=== PATIENT | male | born 1960 | race Caucasian/White ===

== ENCOUNTER 2025-08-26 09:32 | Outpatient (CLI) | payer MEDICARE, MEDICAID, SELFPAY ==
--- NOTE | ~2025-08-26 | XR_ITS ---
EXAMINATION: XR chest 2V DATE: 08/26/2025 11:02 INDICATION: Disease of spinal cord. Smoking. TECHNIQUE: PA and lateral views of the chest were obtained. COMPARISON: Chest radiograph dated 01/11/2004 FINDINGS: Normal variant azygos lobe and fissure at the medial right upper lung zone. Unchanged mild elevation the left hemidiaphragm. No focal airspace opacities, pulmonary edema, pleural effusion or pneumothorax. Heart size is normal. Left pectoral implantable commercial reporter. Mild thoracic spondylosis. IMPRESSION: 1. No acute cardiopulmonary disease. Reviewed, dictated and finalized at location A. ESS WORKER
--- OUTSIDE RECORDS SUMMARY | 2025-08-26 09:55 | XMS_ITS | Clinical Summary ---
Author Organization [facility] Address [address] [place] [address] Phone Care Team Providers Care Sheriffs Detective Name Role Phone Baltazar Espinosa MD Primary Care Provider [phone] Allergies Active Allergy Reactions Criticality Noted Date Comments Bee Venom Anaphylaxis 01/23/2016 Medications METOPROLOL SUCCINATE ER POIndications: 50 mg in am and 25 mg in lewis Take by mouth 2 times daily. Indications: 50 mg in am and 25 mg in lewis 6 Active diltiazem (CARDIZEM CD) 120 MG CAPSULE SR 24 HR Take 120 mg by mouth daily. 6 Active lisinopril (PRINIVIL, ZESTRIL) 40 MG Tablet Take by mouth Every Afternoon. Active Neomycin-Colis g-OC-Afazlibtr m (CORTISPORIN-T C) 3.3-3-10-0.5 MG/ML Suspension Place 2 Drops in affected ear(s) 4 times daily. 5 mL 0 6 Active Additional Information Patient not taking.Reported on 02/01/2018 lisinopril-hyd roCHLOROthiazi de (PRINZIDE, ZESTORETIC) 20-12.5 MG Tablet Take 1 Tab by mouth daily. Active naproxen (NAPROSYN) 500 MG Tablet Take 500 mg by mouth 2 times daily as needed. Active ACETAMINOPHEN- CODEINE #3 PO Take 1 Tab by mouth 2 times daily as needed. Active IBUPROFEN PO Take 200 mg by mouth daily as needed. Active traMADol (ULTRAM) 50 MG Tablet Take 50 mg by mouth every 6 hours as needed. Active baclofen (LIORESAL) 10 MG Tablet Take 10 mg by mouth 3 times daily. Active buPROPion (WELLBUTRIN) 100 MG Tablet Take 100 mg by mouth 2 times daily. Active DULoxetine (CYMBALTA) [address] Particles Take 30 mg by mouth daily. Active EPINEPHRINE HCL, ANAPHYLAXIS, IM by Intramuscular route. Active nitroGLYCERIN (NITROSTAT) 0.4 MG SL Tablet 0.4 mg by Sublingual route every 5 minutes as needed. Active meclizine (ANTIVERT) 25 MG Tablet Take 1 Tab by mouth 3 times daily as needed for Dizziness. 30 Tab 3 9 Active hydrALAZINE 10 MG Tablet Take 10 mg by mouth as needed. If B/P greater than 150 Active celecoxib (CeleBREX) 200 MG Capsule Take 200 mg by mouth daily as needed. Active hydroCHLOROthi azide 12.5 MG Tablet Take by mouth daily. Active Active Problems Problem Noted Date Diagnosed Date Alcohol abuse 02/16/2019 Anxiety disorder 02/16/2019 Myocardial infarction 02/16/2019 High blood pressure 02/16/2019 Family History Medical History Relation Name Comments Cancer Brother Cancer Father Colon Cancer Father lung Coronary Artery Disease Father Heart Attack Father Cancer Mother breast, and spr ead every where Heart Attack Mother Liver Disease Mother Cancer Sister Relation Name Status Comments Brother Father Mother Sister Social History Tobacco Use Types Packs/Day Years Used Date Smoking Tobacco: Every Day Cigarettes 1 40 Smokeless Tobacco: Never Tobacco Cessation:Ready to Q uit: Not Asked; Counseling Given: Not Answered Alcohol Use Standard Drinks/Week Comments Yes 24 (1 standard drink = 0.6 oz pu re alcohol) Sex and Gender Information Value Date Recorded Sex Assigned at Not on file Legal Sex Male 8:03 PM CDT Gender Identity Not on file Sexual Orientation Not on file Last Filed Vital Signs Vital Sign Reading Time Taken Comments Blood Pressure 149/78 06/11/2024 10:38 AM CDT Pulse 72 06/11/2024 10:38 AM CDT Temperature 36 C (96.8 F) 06/11/2024 10:38 AM CDT Respiratory Rate 16 06/11/2024 10:38 AM CDT Oxygen Saturation 100% 06/11/2024 10:38 AM CDT Inhaled Oxygen Concentration - - Weight 72.6 kg (160 lb) 05/28/2024 1:49 PM CDT Height 170.2 cm (5' 7) 05/28/2024 1:49 PM CDT Body Mass Index 25.06 05/28/2024 1:49 PM CDT Plan of Treatment Health Maintenance Due Date Last Done Comments Cologuard 2007 Immunochemical Fecal Occult Blood 2007 Zoster Immunization (1 of 2) 2012 PSA Discussion 2017 Medicare Initial AWV G0438 09/04/2024 Influenza Immunization (#1) 05/05/202507/06, 07/07/2022, 08/09/2021, Additional history exists SARS-COV-2 Immunization ( season) 2025 08/09/2021, 02/03/2021, 01/06/2021 Colonoscopy 06/11/2029 06/11/2024, 04/2024, 04/10/2018, Additional history exists Colorectal Cancer Screening 06/11/2029 Respiratory Syncytial Virus (RSV) Immunization (Adult) (1 - 1-dose 75+ series) 2037 DTaP/Tdap/Td Immunization Discontinued 09/04/2006 TdaP Immunization Completed 09/04/2006 Hepatitis C Virus (HCV) Screening Completed 10/24/2020 Pneumococcal Immunization (50+ years) Completed 07/07/2022 Pneumococcal Immunization Combined Discontinued 07/07/2022 Lung Cancer Screening Discontinued 07/22/2022 Hepatitis B Immunization Aged Out No longer eligible based on patient's age to complete this topic Human Papillomavirus (HPV) Immunization (No Doses Required) Completed Meningococcal Immunization (ACWY) Aged Out No longer eligible based on patient's age to complete this topic Rotavirus Immunization Aged Out No lo nger eligible based on patient's age to complete this topic Procedures Procedure Name Priority Date/Time Associated Diagnosis Comments GI IMAGING - COLONOSCOPY Routine 06/11/2024 8:38 AM CDT from Last 3 Months or Most Recently Relevant to Health Maintenance Results * GI IMAGING - COLONOSCOPY (06/11/2024 8:38 AM CDT) us Kai Amador MD IMG DIAGNOSTIC ORDERABLES Final Result from Last 3 Months or Most Recently Relevant to Health Maintenance Insurance MEDICAID [place] MEDICARE C [employer] Care Teams Sheriffs Detective Relationship Specialty Start Date End Date Baltazar Espinosa MD [address] [place] [address] PCP - General Family Medicine 01/23/16
--- OUTSIDE RECORDS SUMMARY | 2025-08-26 09:55 | XMS_ITS | Clinical Summary ---
Author Organization [facility] Address [address] [place] [address] Care Team Providers Care Metal Room Dental Technician Name Role Phone Baltazar Espinosa MD Primary Care Provider [phone] Source Comments [facility] Affiliates and Associated Physician Practices is amultiple site organization consisting of ambulatory clinics and hospital sitesin [place], [place], [place] and [place]. This disclosure is being madepursuant to the Care Everywhere program and may not contain all information available regarding this patient. Last updated 18.[facility] [employer] Allergies Active Allergy Reactions Criticality Noted Date Comments Bee Venom Anaphylaxis High 01/23/2016 Medications * Be aware that medications may not be up to date on this document. Alwaysverify current medications with the patient. nitroGLYCERIN (NITROSTAT) 0.4 MG tablet nitroglycerin 0.4 mg sublingual tablet Active meclizine (ANTIVERT) 25 MG tablet meclizine 25 mg tablet TAKE 1 TABLET BY MOUTH THREE TIMES DAILY NEEDED Active lisinopril-hyd roCHLOROthiazi de (PRINZIDE; ZESTORETIC) 20-25 MG tablet lisinopril 20 mg-hydrochlorothi azide 25 mg tablet Active hydrALAZINE (APRESOLINE) 10 MG tablet TK ONE T PO PRF SYSTOLIC BLOOD PRESSURE GREATER THAN 150 0 Active diclofenac potassium (CATAFLAM) 50 MG tablet diclofenac potassium 50 mg tablet Active metoprolol succinate XL 24hr (TOPROL XL) 25 MG tablet metoprolol succinate ER 25 mg tablet,extended release 24 hr Active metoprolol succinate XL 24hr (TOPROL XL) 50 MG tablet metoprolol succinate ER 50 mg tablet,extended release 24 hr Active EPINEPHrine (EPIPEN) 0.3 MG/0.3ML auto-injector pen epinephrine 0.3 mg/0.3 mL injection, auto-injector Active Immunizations Immunization Administration Dates Next Due FLU VACCINE QUAD IIV4 SPLIT 0.25 ML IM 8,05/25/2017 TDAP (7yrs+) 09/04/2006 Social History Tobacco Use Types Packs/Day Years Used Date Smoking Tobacco: Every Day Cigarettes 1.2 50.1 Started: 07/14/1975 Smokeless Tobacco: Never Alcohol Use Standard Drinks/Week Comments Yes 12 (1 standard drink = 0.6 oz pu re alcohol) AUDIT-C Answer Date Recorded Q1: How often do you have a drink containing alcohol? 4 or more times a week 07/14/2020 Average Number of Drinks Not on file 020 Q3: How often do you have si x or more drinks on one occasion? Daily or almost daily 07/14/2020 Sex and Gender Information Value Date Recorded Sex Assigned at Not on file Legal Sex Male 3:01 PM CDT Gender Identity Not on file Sexual Orientation Not on file Last Filed Vital Signs Vital Sign Reading Time Taken Comments Blood Pressure 152/92 07/14/2020 8:49 AM COMPUTER FORENSICS INVESTIGATOR Pulse - - Temperature 36.4 C (97.6 F) 07/14/2020 8:49 AM COMPUTER FORENSICS INVESTIGATOR Respiratory Rate - - Oxygen Saturation - - Inhaled Oxygen Concentration - - Weight 64.6 kg (142 lb 6.4 oz) 07/14/2020 8:49 A M COMPUTER FORENSICS INVESTIGATOR Height 170.2 cm (5' 7) 07/14/2020 8:49 AM COMPUTER FORENSICS INVESTIGATOR Body Mass Index 22.3 07/14/2020 8:49 AM COMPUTER FORENSICS INVESTIGATOR Plan of Treatment Health Maintenance Due Date Last Done Comments COLOGUARD (AGES 45-75) - COL ON CA SCREENING 1962 COLON MONITORING 1962 COLONOSCOPY - COLON CA SCREENING 1962 CT COLONOGRAPHY - COLON CA SCREENING 1962 Colorectal Cancer Screening 1962 FIT - COLON CA SCREENING 1962 FLEX SIG - COLON CA SCREENING 1962 LIPID TESTING 1962 HIV SCREENING 1977 HEPATITIS C SCREENING 09/02/1980 PNEUMOCOCCAL VACCINE 50+ (1 of 1 - PCV) 2012 ZOSTER VACCINE (1 of 2) 2012 DTAP/TDAP/TD VACCINES (2 - T d or Tdap) 09/04/2016 09/04/2006 DEPRESSION SCREENING 09/04/2024 COVID-19 VACCINE (1 - 2024-2 6 season) 2025 INFLUENZA VACCINE (#1) 2025 0, 07/02/2018, 05/25/2017 Respiratory Syncytial Virus (RSV) Vaccine Pt: or over 60 yrs (1 - 1-dose 75+ series) 2037 HEPATITIS B VACCINE Aged Out No longe r eligible based on patient's age to complete this topic HIB VACCINE Aged Out No longer eligi ble based on patient's age to complete this topic HPV VACCINE Aged Out No longer eligi ble based on patient's age to complete this topic MENINGOCOCCAL (Group B) VACCINE SHARED DECISION-MAKING Aged Out No longer eligible based on patient's age to complete this topic MENINGOCOCCAL GROUPS A/C/Y/W VACCINE Aged Out No longer eligible b ased on patient's age to complete this topic Insurance MEDICAID - OUT OF STATE MEDICARE Care Teams Metal Room Dental Technician Relationship Specialty Start Date End Date Baltazar Espinosa MD [address] [place] [address] PCP - General 07/14/20
--- OUTSIDE RECORDS SUMMARY | 2025-08-26 09:55 | XMS_ITS | Clinical Summary ---
Author Organization [facility] Address [facility] [place] [address] Care Team Providers Care It Technical Specialist Name Role Phone Baltazar Espinosa MD Primary Care Provider [phone] Allergies No known active allergies Medications naproxen (NAPROSYN) 500 MG tablet Take 1 tablet (500 mg total) by mouth 2 (two) times daily with meals. 60 tablet 11/13/2024 Active Encounters Date Type Department Care Team Description 06/23/2025 3:45 PM CDT - 06/23/2025 11:59 PM CDT Hospital Encounter [facility] [address] [facility] [place] [address] Mikey Dunlap MD Discharge Disposition: Home or Self Care (Routine Discharge) 06/23/2025 Orders Only [facility] [address] [facility] [facility] [place] [address] Mikey Dunlap MD 06/23/2025 Travel from Last 3 Months Social History Tobacco Use Types Packs/Day Years Used Date Smoking Tobacco: Unknown Tobacco Cessation:Counseling Given: Not Answered Sex and Gender Information Value Date Recorded Sex Assigned at Male 11/13/2024 10:10 AM CDT Legal Sex Male 4:46 PM CDT Gender Identity Not on file Sexual Orientation Not on file Last Filed Vital Signs Vital Sign Reading Time Taken Comments Blood Pressure 143/81 11/13/2024 11:30 AM CDT Pulse 88 11/13/2024 10:08 AM CDT Temperature 36.4 C (97.6 F) 11/13/2024 10:08 AM CDT Respiratory Rate 16 11/13/2024 10:08 AM CDT Oxygen Saturation 96% 11/13/2024 11:30 AM CDT Inhaled Oxygen Concentration - - Weight 68 kg (150 lb) 11/13/2024 10:08 AM CDT Height 172.7 cm (5' 8) 11/13/2024 10:08 AM CDT Body Mass Index 22.81 11/13/2024 10:08 AM CDT Plan of Treatment Health Maintenance Due Date Last Done Comments Colorectal Cancer Screening Colonoscopy (10 Years) 1962 Annual Physical 1965 Zoster Vaccines (1 of 2) 2012 DTaP, Tdap and Td Vaccines (2 - Td or Tdap) 09/04/2016 09/04/2006 COVID-19 Vaccine ( - season) 2025 08/09/2021, 02/03/2021, 01/06/2021 RSV Immunization or 60+ Years (1 - 1-dose 75+ series) 2037 Hepatitis C Completed 10/24/2020 Pneumococcal Vaccine: 50+ Years Completed 07/07/2022 Influenza Adult Completed 06/11/2025, 07/06, 07/07/2022, Additional history exists Hepatitis A Vaccines Aged Out No long er eligible based on patient's age to complete this topic Meningococcal B Vaccine Aged Out No l onger eligible based on patient's age to complete this topic Meningococcal Vaccine Aged Out No birgit huber eligible based on patient's age to complete this topic RSV Immunizations Under 20 Months Aged Out No longer eligible based on patient's age to complete this topic Procedures Procedure Name Priority Date/Time Associated Diagnosis Comments MISCELLANEOUS LAB TEST Routine 3:50 PM CDT Nicotine dependence HEPATITIS PANEL,ACUTE Routine 10/24/2020 7:40 AM LEARNING SOLUTIONS SPECIALIST from Last 3 Months or Most Recently Relevant to Health Maintenance Results * MISCELLANEOUS LAB TEST (06/23/2025 3:50 PM CDT) TEST NAME: 90,[id number] 06/23/2025 4:01 PM CDT [facility] LAB SPECIMEN TYPE URINE 06/23/2025 4:01 PM CDT [facility] TEST RESULT: Flexitest 1 06/26/2025 11:48 PM CDT [facility] HALINA DOWD Comment: Flexitest 1 Nicotine and Cotinine, Urine Nicotine, Urine 78 ng/mL Cotinine, Urine 127 ng/mL Reference Range: Nicotine, Urine Smokers: 200-700 ng/mL Nonsmokers: < or = 17 ng/mL Cotinine, Urine Smokers: 300-1300 ng/mL Nonsmokers: < or = 20 ng/mL Individuals exposed to second-hand or passive tobacco smoke may demonstrate concentrations of nicotine and cotinine greater than those indicated for non-smokers. This test was developed and its analytical performance characteristics have been determined by [facility] [employer] [place], [place]. It has not been cleared or approved by the U.S. Food and Drug Administration. This assay has been validated pursuant to the CLIA regulations and is used for clinical purposes. Test Performed by [facility], [facility], [address] [place] [address] Bryson Ledbetter M.D., Ph.D., Director of Laboratories , CLIA [id number] 06/23/2025 3:50 PM CDT Mikey Dunlap MD LABORATORY Final Res ult [facility] [address] [address], [facility] [address] [place] [address] [place] [address], * HEPATITIS PANEL,ACUTE (10/24/2020 7:40 AM LEARNING SOLUTIONS SPECIALIST) ANTI HEP B SURFACE AG NON-REACT GRICELDA NON-REACT GRICELDA [facility] HEPATITIS A IGM NON-REACT GRICELDA NON-REACT GRICELDA [facility] Comment: For additional information, please refer to http://education.[employer]ai/faq/WEA216 (This link is being provided for informational/ educational purposes only.) HEP B CORE AB COMMENT NON-REACT GRICELDA NON-REACT GRICELDA [facility] HEPATITIS C AB NON-REACT GRICELDA NON-REACT GRICELDA [facility] SIGNAL TO CUTOFF 0.01 <1.00 [facility] Comment: HCV antibody was non-reactive. There is no laboratory evidence of HCV infection. In most cases, no further action is required. However, if recent HCV exposure is suspected, a test for HCV RNA (test code 65853) is suggested. For additional information please refer to http://education.Feedzai/faq/YLV93g4 (This link is being provided for informational/ educational purposes only.) THIS TEST WAS PERFORMED AT: [facility] [address] [place] [address] MED MCCLELLAN DO,MPH 10/24/2020 7:40 AM LEARNING SOLUTIONS SPECIALIST 10/24/2020 7:40 AM LEARNING SOLUTIONS SPECIALIST Baltazar Espinosa MD LABORATORY Final Result Performing Organization Address City/State/[facility] Co de Phone Number [address] [address] from Last 3 Months or Most Recently Relevant to Health Maintenance Insurance [facility] Care Teams It Technical Specialist Relationship Specialty Start Date End Date Baltazar Espinosa MD [address] [facility], [address] [place] [address] PCP - General FAMILY PRACTICE 07/14/22
--- NOTE | 2025-08-26 10:34 | ECG_ITS ---
Test Date: 2025-08-26 10:40:37 Measurements Intervals [place]ba Rate: 91 P: 69 KS: 147 QRS: 38 QRSD: 84 T: 22 QT: 317 QTc: 390 Interpretive Statements SINUS RHYTHM BORDERLINE ST-T WAVE ABNORMALITY- INFERIOR LEADS BASELINE ARTIFACT- I, II, AVR, AVL, AVF BORDERLINE ECG No previous ECG available for comparison Electronically Signed On 08-26-2025 10:42:04 EARLY INTERVENTIONIST by Kolton Marshall D.O.
[2025-08-26 11:07] LABS: Hematocrit 41.4 % (42.0-52.0); Hemoglobin 14.1 g/dL (14.0-18.0); Mean Corpuscular HGB Conc 34.1 g/dl (32-36); Mean Corpuscular Hemoglobin 31.0 pg (26-34); Mean Corpuscular Volume 91.0 fl (80-100); Platelet Count Result 235 k/mm3 (150-375); Red Blood Count 4.55 M/mm3 (4.6-6.20); White Blood Count 7.9 K/mm3 (4.5-10.0)
[2025-08-26 11:07] LABS: Add Urine Microscopic? NO; Appearance Urine Clear (Clear); Glucose Urine UA Negative (Negative); Leukocyte Esterase Ur Negative LEU/UL (Negative); Nitrate Urine Negative (Negative); Specific Grav Ur 1.018 (1.001-1.035)
[2025-08-26 11:17] LABS: INR 1.0; Prothrombin Time 13.0 Seconds (11.1-14.7)
[2025-08-26 11:19] LABS: Partial Thromboplastin Time 28.7 Seconds (22.3-36.8)
[2025-08-26 11:28] LABS: Anion Gap 10 mmol/L (4-12); Blood Urea Nitrogen 20 mg/dL (9-20); Calcium 9.8 mg/dL (8.4-10.2); Carbon Dioxide 26 mmol/L (22-30); Chloride 95 mmol/L (98-107); Estimated Glomerular Filt Rate 60; Glucose 81 mg/dL (65-110); Potassium 4.8 mmol/L (3.4-5.0); Sodium 131 mmol/L (137-145)
== END 2025-08-26 09:33 | disposition home or self-care (01) ==
PROVIDERS: PCP Family Medicine; Visit Provider Neurological Surgery
DX: Z01.818 Encounter for other preprocedural examination (principal); G95.9 Disease of spinal cord, unspecified; R94.31 Abnormal electrocardiogram [ECG] [EKG]
CPT/HCPCS: 36415; 71046; 80048; 81003; 85027; 85610; 85730; 93005